=== PATIENT | female | born 1965 | race Caucasian/White ===

== ENCOUNTER 2020-04-27 16:28 | Emergency (ER) | payer BC ==
[2020-04-27] MEDS ORDERED: Sodium Chloride 0.9% 10 ML Syringe FLUSH PRN (16:30)
[2020-04-27] MEDS: Sodium Chloride 0.9% 1,000 ML IV ONE (16:50)
[2020-04-27 17:07] LABS: ANION GAP 15.4 mmol/L (5-15); CHLORIDE,CL 105 mmol/L (98-115); SODIUM,NA 142 mmol/L (136-145)
[2020-04-27 17:10] VITALS: BP 164/94; PULSE 71
[2020-04-27] MEDS: Ondansetron 4 MG/2 ML SDV IVPUSH ONE (17:35)
--- NOTE | 2020-04-27 17:55 | EDM.PDOC ---
ED HPI GENERAL MEDICAL PROBLEM - General Chief Complaint: General Stated Complaint: HEADACHE, CHILLS Time Seen by Provider: 04/27/20 16:30 Source of Information: Reports: Patient History Limitations: Reports: No Limitations - History of Present Illness INITIAL COMMENTS - FREE TEXT/NARRATIVE: Patient is a 54-year-old female who presents to the emergency department this afternoon with a complaint of weakness and dizziness. Patient states that she was doing some light activity and felt weak and became diaphoretic. This occurred about 1 hour prior to presentation. Patient denies any cardiopulmonary history, chest pain, shortness of breath, abdominal pain, bowel changes, fever, covid exposure, suspected dehydration, change in medication, weight gain or weight loss. Onset: Today, Sudden Duration: Hour(s): Severity: Mild Improves with: Reports: None Worsens with: Reports: None Context: Reports: Activity Associated Symptoms: Reports: Diaphoresis, Headaches, Nausea/Vomiting. Denies: Fever/Chills - Related Data Allergies Allergy/AdvReac Type Severity Reaction Status Date / Time erythromycin base Allergy Nausea Verified 04/27/20 17:11 Penicillins Allergy Anaphylactic Verified 04/27/20 17:11 Shock Sulfa (Sulfonamide Allergy Cannot Verified 04/27/20 17:11 Antibiotics) Remember Home Meds: Home Meds Acetaminophen [Tylenol Extra Strength] 1,000 mg PO Q4H PRN 03/01/15 [History] LORazepam 1 mg PO DAILY PRN 10/29/16 [History] Past Medical History - Past Health History Medical/Surgical History: Denies Medical/Surgical History HEENT History: Reports: Impaired Vision Gastrointestinal History: Reports: None 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 Constitutional: Reports: Chills, Weakness, Diaphoresis HEENT: Reports: No Symptoms Respiratory: Reports: No Symptoms Cardiovascular: Reports: No Symptoms Endocrine: Reports: No Symptoms GI/Abdominal: Reports: No Symptoms : Reports: No Symptoms Musculoskeletal: Reports: No Symptoms Skin: Reports: No Symptoms Neurological: Reports: Dizziness Psychiatric: Reports: No Symptoms Hematologic/Lymphatic: Reports: No Symptoms Immunologic: Reports: No Symptoms ED EXAM, GENERAL - Physical Exam Exam: See Below Exam Limited By: No Limitations General Appearance: Alert, WD/WN, No Apparent Distress, Lethargic Eye Exam: Bilateral Eye: Normal Inspection Nose: Normal Inspection, Normal Mucosa, No Blood Throat/Mouth: Normal Inspection, Normal Oropharynx, No Airway Compromise Head: Atraumatic, Normocephalic Neck: Normal Inspection Respiratory/Chest: No Respiratory Distress, Lungs Clear, Normal Breath Sounds, No Accessory Muscle Use, Chest Non-Tender Cardiovascular: Regular Rate, Rhythm, No Murmur GI/Abdominal: Normal Bowel Sounds, Soft, Non-Tender Back Exam: Normal Inspection. No: CVA Tenderness (L), CVA Tenderness (R) Extremities: Normal Inspection, No Pedal Edema Neurological: Alert, Oriented, CN II-XII Intact, Normal Cognition Psychiatric: Normal Affect, Normal Mood Skin Exam: Warm, Intact, Normal Color, No Rash, Diaphoretic Lymphatic: No Adenopathy EKG INTERPRETATION EKG Date: 04/27/20 Time: 18:00 Rhythm: NSR Rate (Beats/Min): 59 Gilchrist: Normal P-Wave: Present QRS: Normal ST-T: Normal QT: Normal Comparison: NA - No Prior EKG Course - Vital Signs Last Recorded V/S: Last Vital Signs Temp 96 F L 04/27/20 17:06 Pulse 71 04/27/20 17:06 Resp 20 04/27/20 17:06 BP 164/94 H 04/27/20 17:06 Pulse Ox 100 04/27/20 17:06 - Orders/Labs/Meds Orders: Active Orders 24 hr Category Date Time Status EKG Documentation Completion [RC] ASDIRECTED Care 04/27/20 17:48 Ordered Peripheral IV Care [RC] . DIRECTED Care 04/27/20 16:30 Ordered Sodium Chloride 0.9% [Saline Flush] Med 04/27/20 16:30 Ordered 10 ml FLUSH Q8HR PRN Peripheral IV Insertion Adult [OM.PC] Routine Oth 04/27/20 16:30 Ordered EKG 12 Lead [EK] Stat Ther 04/27/20 17:47 Ordered Medication Orders Sodium Chloride (Saline Flush) 10 ml FLUSH Q8HR PRN PRN Reason: keep vein open Labs: Laboratory Tests 04/27/20 04/27/20 04/27/20 Range/Units 16:31 16:35 17:45 WBC 9.70 (5.00-10.00) 10^3/uL RBC 5.12 (3.80-5.50) 10^6/uL Hgb 14.6 (12.0-16.0) g/dL Hct 44.5 (37.0-47.0) % MCV 86.9 (82.0-92.0) fL MCH 28.5 (27.0-31.0) pg MCHC 32.8 (32.0-36.0) g/dL RDW 13.4 (11.5-14.5) % Plt Count 380 (150-400) 10^3/uL MPV 10.1 (7.4-10.4) fL Immature Gran % (Auto) 0.2 (0.0-5.0) % Neut % (Auto) 72.1 H (50.0-70.0) % Lymph % (Auto) 16.9 L (20.0-40.0) % [place] % (Auto) 8.1 H (2.0-8.0) % Eos % (Auto) 2.2 (1.0-3.0) % Baso % (Auto) 0.5 (0.0-1.0) % Neut # (Auto) 6.99 (2.50-7.00) 10^3/uL Lymph # (Auto) 1.64 (1.00-4.00) 10^3/uL [place] # (Auto) 0.79 (0.10-0.80) 10^3/uL Eos # (Auto) 0.21 (0.10-0.30) 10^3/uL Baso # (Auto) 0.05 (0.00-0.10) 10^3/uL Immature Gran # (Auto) 0.02 (0.00-0.50) 10^3/uL Sodium 142 (136-145) mmol/L Potassium 4.0 (3.3-5.3) mmol/L Chloride 105 (98-115) mmol/L Carbon Dioxide 25.6 (21.0-32.0) mmol/L Anion Gap 15.4 H (5-15) mmol/L BUN 18 (6-25) mg/dL Creatinine 0.65 (0.51-1.17) mg/dL Est Cr Clr Drug Dosing TNP Estimated GFR (MDRD) > 60 mL/min Glucose 84 (75 - 99) mg/dL Calcium 8.6 L (8.7-10.3) mg/dL Total Bilirubin 0.4 (0.2-1.0) mg/dL AST 31 (15-37) U/L ALT 31 (12-78) U/L Alkaline Phosphatase 89 (46-116) IU/L Total Protein 7.1 (6.4-8.2) g/dL Albumin 4.14 (3.00-4.80) g/dL Specimen Type Urincc Urine Color Light yellow (YELLOW) Urine Appearance Clear (CLEAR) Urine pH 5.5 (5.0-9.0) Ur Specific [place] 1.015 (1.005-1.030) Urine Protein Negative (NEGATIVE) mg/dL Urine Glucose (UA) Negative (NEGATIVE) mg/dL Urine Ketones Trace H (NEGATIVE) mg/dL Urine Occult Blood Negative (NEGATIVE) Urine Nitrite Negative (NEGATIVE) Urine Bilirubin Negative (NEGATIVE) Urine Urobilinogen 0.2 (0.2-1.0) E.U./dL Ur Leukocyte Esterase Negative (NEGATIVE) Meds: Medications Generic Name Dose Route Start Last Admin Trade Name Freq PRN Reason Stop Dose Admin Sodium Chloride 10 ml 04/27/20 16:30 Saline Flush FLUSH Q8HR PRN keep vein open Discontinued Medications Generic Name Dose Route Start Last Admin Trade Name Freq PRN Reason Stop Dose Admin Sodium Chloride 1,000 mls @ 999 mls/hr 04/27/20 16:30 04/27/20 16:50 Normal Saline IV 04/27/20 17:30 999 mls/hr .BOLUS ONE Administration Ondansetron HCl 4 mg 04/27/20 17:26 04/27/20 17:35 Zofran IVPUSH 04/27/20 17:27 4 mg ONETIME ONE Administration - Re-Assessments/Exams Free Text/Narrative Re-Assessment/Exam: 04/27/20 19:05 Patient afebrile, vital signs stable, feels much better after 1 L normal saline. Patient will follow-up with PCP Departure - Departure Time of Disposition: 19:06 Disposition: Home, Self-Care 01 Condition: Good Clinical Impression: Weakness - Discharge Information Instructions: Weakness, [id number] Referrals: Christina Begum MD [Physician] - Forms: ED Department Discharge Additional Instructions: Follow-up with Dr. Gimenez in one to 2 days. Return to emergency department sooner symptoms continue or worsen. Sepsis Event Note (ED) - Evaluation Sepsis Screening Result: No Definite Risk - Focused Exam Vital Signs: Vital Signs Temp Pulse Resp BP Pulse Ox 04/27/20 17:06 96 F L 71 20 164/94 H 100 - My Orders Last 24 Hours: My Active Orders 04/27/20 16:30 Peripheral IV Care [RC] . DIRECTED Sodium Chloride 0.9% [Saline Flush] 10 ml FLUSH Q8HR PRN Peripheral IV Insertion Adult [OM.PC] Routine 04/27/20 17:47 EKG 12 Lead [EK] Stat 04/27/20 17:48 EKG Documentation Completion [RC] ASDIRECTED - Assessment/Plan Last 24 Hours: My Active Orders 04/27/20 16:30 Peripheral IV Care [RC] . DIRECTED Sodium Chloride 0.9% [Saline Flush] 10 ml FLUSH Q8HR PRN Peripheral IV Insertion Adult [OM.PC] Routine 04/27/20 17:47 EKG 12 Lead [EK] Stat 04/27/20 17:48 EKG Documentation Completion [RC] ASDIRECTED Assessment:: Weakness Plan: Follow-up with PCP
== END 2020-04-27 19:15 | disposition home or self-care (01) ==
LOC: KA.ED 16:28
DX: R53.1 Weakness (principal); R42 Dizziness and giddiness; Z88.0 Allergy status to penicillin; Z88.1 Allergy status to other antibiotic agents; Z88.2 Allergy status to sulfonamides
CPT/HCPCS: 80053; 81003; 85025; 93005; 96361; 96374; 99285; J2405; J7030; 99284

== ENCOUNTER 2021-02-10 10:09 | Day surgery (SDC) | payer BC ==
[2021-02-10] MEDS ORDERED: Sodium Chloride 0.9% 10 ML Syringe FLUSH PRN (10:15)
[2021-02-10] MEDS ORDERED: Lactated Ringers 1,000 ML IV SCH (10:15)
--- NOTE | 2021-02-10 11:44 | PCM.PN ---
- General Info Date of Service: 02/10/21 - Review of Systems Systems Review Comment:: 55-year-old female here for screening colonoscopy. She does have a history of colon cancer in a grandparent. The patient is medically stable to proceed today. Her recent history and physical is reviewed and no significant changes are noted. I have discussed the proposed colonoscopy with the patient. Risks such as but not limited to bleeding and colon injury are reviewed. She agrees to proceed. - Patient Data Vitals - Most Recent: Last Vital Signs Temp 97.6 F 02/10/21 10:23 Pulse 60 02/10/21 10:23 Resp 16 02/10/21 10:23 BP 136/85 02/10/21 10:23 Pulse Ox 100 02/10/21 10:23 Weight - Most Recent: 83.915 kg Med Orders - Current: Current Medications Lactated Ringer's (Ringers, Lactated) 1,000 mls @ 50 mls/hr IV ASDIRECTED DEBORAH Last Admin: 02/10/21 10:59 Dose: 50 mls/hr Documented by: Sodium Chloride (Sodium Chloride 0.9% 10 Ml Syringe) 10 ml FLUSH Q8HR PRN PRN Reason: keep vein open Sepsis Event Note - Focused Exam Vital Signs: Vital Signs Temp Pulse Resp BP Pulse Ox 02/10/21 10:23 97.6 F 60 16 136/85 100 - Problem List Review Problem List Initiated/Reviewed/Updated: Yes - My Orders Last 24 Hours: My Active Orders 02/09/21 16:10 Resuscitation Status Routine 02/10/21 Breakfast Nothing Per Oral Diet [DIET] 02/10/21 10:15 Peripheral IV Care [RC] . DIRECTED Lactated Ringers [Ringers, Lactated] 1,000 ml IV ASDIRECTED Sodium Chloride 0.9% [Saline Flush] 10 ml FLUSH Q8HR PRN Peripheral IV Insertion Adult [OM.PC] Routine 02/10/21 10:30 Patient to Empty Bladder [RC] ASDIRECTED 02/10/21 11:15 Verify Patient Consent Obtain [RC] ASDIRECTED - Assessment Assessment:: Colon cancer screening - Plan Plan:: Colonoscopy
[2021-02-10] MEDS ORDERED: Propofol 200 MG/20 ML SDV ONE (11:54)
[2021-02-10] MEDS ORDERED: Midazolam 1 MG/ML 2 ML SDV ONE (11:54)
--- NOTE | 2021-02-10 12:36 | PCM.OPNOTE ---
- General Post-Op/Procedure Note Date of Surgery/Procedure: 02/10/21 Operative Procedure(s): Colonoscopy with Polypectomy Findings: Cluster of 3 polyps in rectum External Hemorrhoids Colon otherwise normal Pre Op Diagnosis: Colon Cancer Screening Post-Op Diagnosis: Colon Poyps. Hemorrhoids Anesthesia Technique: MAC Primary Surgeon: Dylan Oneil Pathology: Rectal Polyps EBL in mLs: 0 Complications: None Condition: Good
[2021-02-10 15:41] VITALS: BP 103/64; PULSE 50
--- NOTE | 2021-02-10 16:56 | OR ---
DATE OF SURGERY: 02/10/2021 SURGEON: Dylan Oneil MD PREOPERATIVE DIAGNOSIS: Colon cancer screening. POSTOPERATIVE DIAGNOSIS: Colon polyps and hemorrhoids. OPERATION PERFORMED: Colonoscopy with polypectomy. INDICATIONS FOR SURGERY: This 55-year-old female is here for screening colonoscopy. She does have a history of colon cancer in a grandparent. It has been many years since her previous colonoscopy. FINDINGS: A cluster of 3 polyps was noted in the rectum approximately 8 cm from the anal verge. These range in size from 3 mm to 8 mm with the largest being pedunculated and the other sessile. Her colon otherwise appears normal. She does have some external hemorrhoids and scarring from previous surgery. DESCRIPTION OF PROCEDURE: The patient was taken to the operating room. She was given intravenous sedation and with her in the left lateral decubitus position, digital rectal exam was performed showing no rectal masses. The Olympus colonoscope was inserted into the rectum. Retroflexed examination of the rectal canal is performed. In the rectum, the above-described 3 polyps were identified. The 2 larger polyps were removed with cautery snare and retrieved. The other very small polyp is destroyed with cautery. The scope was then carefully advanced under direct visualization through the entire length of the colon until the cecum is reached. Cecal acquisition is confirmed by noting the normal internal cecal anatomy including the appendiceal orifice and the ileocecal valve. After examining the cecum, the scope was slowly withdrawn sequentially re-examining the colonic segments until the entire colon and rectum had been fully examined. The scope was removed and the patient was taken from the operating room in satisfactory condition. ESTIMATED BLOOD LOSS: Zero. COMPLICATIONS: None. PROGNOSIS: Good. /[id number]/MODL
== END 2021-02-10 13:35 | disposition home or self-care (01) ==
LOC: KA.SDS 10:09
PROVIDERS: ATTEND Surgery
DX: Z12.11 Encounter for screening for malignant neoplasm of colon (principal); K62.1 Rectal polyp; K64.9 Unspecified hemorrhoids; E53.8 Deficiency of other specified B group vitamins; E55.9 Vitamin D deficiency, unspecified; K21.9 Gastro-esophageal reflux disease without esophagitis; Z80.0 Family history of malignant neoplasm of digestive organs; Z88.1 Allergy status to other antibiotic agents; Z88.8 Allergy status to other drugs, medicaments and biological substances; Z79.899 Other long term (current) drug therapy; Z98.890 Other specified postprocedural states
CPT/HCPCS: 00812; 45385; J2250; J2704; J7120

== ENCOUNTER 2021-03-30 20:53 | Emergency (ER) | payer BC ==
--- NOTE | 2021-03-30 20:58 | EDM.PDOC ---
ED HPI GENERAL MEDICAL PROBLEM - General Chief Complaint: Back Pain or Injury Stated Complaint: LOWER BACK PAIN Time Seen by Provider: 03/30/21 20:57 Source of Information: Reports: Patient - History of Present Illness INITIAL COMMENTS - FREE TEXT/NARRATIVE: Shanita, 55-year-old female, presents per pedis to the emergency department with left SI lower back discomfort. Satarday she was carrying items with her arms full when she caught her foot on uneven concrete falling forward catching herself but striking her upper torso on the dumpster railing. She had some discomfort at the time but has been stable up until this afternoon. She then returned home after work and started experiencing significant discomfort with questionable spasm in the left SI joint.She denies any radiculopathy or radiation into the buttock nor into the left upper thigh nor leg. History of minimal involvement with her back, but never experiencing anything like this. Onset Date: 03/29/21 Duration: Hour(s):, Getting Worse Location: Reports: Back, Pelvis Quality: Reports: Burning, Sharp Severity: Severe Worsens with: Reports: Movement Context: Reports: Activity Lower Back Pain Score (Numeric/FACES): 10 - Related Data Allergies Allergy/AdvReac Type Severity Reaction Status Date / Time erythromycin base Allergy Nausea Verified 03/30/21 21:28 Penicillins Allergy Anaphylactic Verified 03/30/21 21:28 Shock Sulfa (Sulfonamide Allergy Cannot Verified 03/30/21 21:28 Antibiotics) Remember sulfamethoxazole Allergy Cannot Verified 03/30/21 21:28 [From Bactrim] Remember trimethoprim [From Bactrim] Allergy Cannot Verified 03/30/21 21:28 Remember Home Meds: Home Meds Acetaminophen [Tylenol Extra Strength] 1,000 mg PO Q4H PRN 03/01/15 [History] LORazepam 1 mg PO DAILY PRN 10/29/16 [History] Cholecalciferol (Vitamin D3) [Vitamin D] 5,000 unit PO DAILY 02/09/21 [History] Past Medical History - Past Health History Medical/Surgical History: Denies Medical/Surgical History HEENT History: Reports: Impaired Vision Gastrointestinal History: Reports: None 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 History: Reports: None Neurological History: Reports: Migraines Hematologic History: Reports: Anemia Dermatologic History: Reports: None - Past Surgical History GI Surgical History: Reports: Bariatric Procedure Other GI Surgeries/Procedures: Fistula repair x5 Female Surgical History: Reports: Hysterectomy Musculoskeletal Surgical History: Reports: Joint Replacement, Knee Replacement, Other (See Below) Other Musculoskeletal Surgeries/Procedures:: right knee ACL/MCL repair; right knee replacement 07/2020 Dermatological Surgical History: Reports: Plastic Surgical Reconstruction/Repair Social & Family History - Family History Family Medical History: No Pertinent Family History - Caffeine Use Caffeine Use: Reports: Soda ED ROS GENERAL - Review of Systems Review Of Systems: Comprehensive ROS is negative, except as noted in HPI. ED EXAM,LOWER BACK PAIN/INJURY - Physical Exam Exam: See Below Text/Narrative:: Alert oriented in mild painful distress. HEENT is negative discharge or deformity. Neck is soft supple no lymphadenopathy Thorax is clear no wheezes no crackles. Cardiac is regular There is tenderness in the upper aspect of the left SI back region with point tenderness over the SI joint itself. Limited motion of the right lower extremity is any motion of the hip, even the knee induces discomfort of the left SI. Virtually no motion of the left lower extremity as significant worsening of pain. Distal pulses are present CMS is intact. Course - Vital Signs Last Recorded V/S: Last Vital Signs Temp 97.2 F 03/30/21 21:25 Pulse 72 03/30/21 21:25 Resp 20 03/30/21 21:25 BP 145/70 H 03/30/21 21:25 Pulse Ox 97 03/30/21 21:25 - Orders/Labs/Meds Orders: Active Orders 24 hr Category Date Time Status Peripheral IV Care [RC] . DIRECTED Care 03/30/21 21:08 Active Sodium Chloride 0.9% [Saline Flush] Med 03/30/21 21:08 Active 10 ml FLUSH Q8HR PRN Peripheral IV Insertion Adult [OM.PC] Routine Oth 03/30/21 21:08 Ordered Medication Orders Sodium Chloride (Sodium Chloride 0.9% 10 Ml Syringe) 10 ml FLUSH Q8HR PRN PRN Reason: keep vein open Last Admin: 03/30/21 21:07 Dose: 10 ml Documented by: LYN Meds: Medications Generic Name Dose Route Start Last Admin Trade Name Freq PRN Reason Stop Dose Admin Sodium Chloride 10 ml 03/30/21 21:08 03/30/21 21:07 Sodium Chloride 0.9% 10 Ml Syringe FLUSH 10 ml Q8HR PRN Administration keep vein open Discontinued Medications Generic Name Dose Route Start Last Admin Trade Name Geovanni PRN Reason Stop Dose Admin Ketorolac Tromethamine 30 mg 03/30/21 21:07 03/30/21 21:17 Ketorolac 30 Mg/Ml Sdv IM 03/30/21 21:08 30 mg ONETIME ONE Administration Ketorolac Tromethamine 30 mg 03/30/21 21:07 03/30/21 21:14 Ketorolac 30 Mg/Ml Sdv IVPUSH 03/30/21 21:08 30 mg ONETIME ONE Administration Orphenadrine Citrate 60 mg 03/30/21 21:32 03/30/21 21:38 Orphenadrine 60 Mg/2 Ml Inj IM 03/30/21 21:33 60 mg ONETIME ONE Administration - Re-Assessments/Exams Free Text/Narrative Re-Assessment/Exam: 03/30/21 21:33 Mild improvement but still unable to move lower extremities, stating a spasming feeling. We will implement Norflex IM and see if that will help calm down the area. Departure - Departure Time of Disposition: 21:55 Disposition: Home, Self-Care 01 Condition: Good Clinical Impression: SI (sacroiliac) pain - Discharge Information *PRESCRIPTION DRUG MONITORING PROGRAM REVIEWED*: Not Applicable *COPY OF PRESCRIPTION DRUG MONITORING REPORT IN PATIENT TATIANA: Not Applicable Referrals: Christina Begum MD [Primary Care Provider] - Forms: ED Department Discharge Additional Instructions: You need to go home, rest, on a flat uniform surface. The medications you have been given may make you slightly drowsy. You may use Tylenol this evening for discomfort, but no Aleve or ibuprofen until tomorrow morning. Heat and ice sometimes will benefit to reduce pain and inflammation. We will contact Cameron tomorrow and see if he is able to see you in physical therapy for evaluation and treatment. Return to the emergency department tonight if spasming or pain becomes severe, otherwise contact clinic or therapy in the morning. Sepsis Event Note (ED) - Focused Exam Vital Signs: Vital Signs Temp Pulse Resp BP Pulse Ox 03/30/21 21:25 97.2 F 72 20 145/70 H 97 - Problem List & Annotations (1) SI (sacroiliac) pain SNOMED Code(s): 364272508 Code(s): M53.3 - SACROCOCCYGEAL DISORDERS, NOT ELSEWHERE CLASSIFIED Status: Acute Current Visit: Yes - Problem List Review Problem List Initiated/Reviewed/Updated: Yes - My Orders Last 24 Hours: My Active Orders 03/30/21 21:08 Peripheral IV Care [RC] . DIRECTED Sodium Chloride 0.9% [Saline Flush] 10 ml FLUSH Q8HR PRN Peripheral IV Insertion Adult [OM.PC] Routine - Assessment/Plan Last 24 Hours: My Active Orders 03/30/21 21:08 Peripheral IV Care [RC] . DIRECTED Sodium Chloride 0.9% [Saline Flush] 10 ml FLUSH Q8HR PRN Peripheral IV Insertion Adult [OM.PC] Routine Plan: You need to go home, rest, on a flat uniform surface. The medications you have been given may make you slightly drowsy. You may use Tylenol this evening for discomfort, but no Aleve or ibuprofen until tomorrow morning. Heat and ice sometimes will benefit to reduce pain and inflammation. We will contact Cameron tomorrow and see if he is able to see you in physical therapy for evaluation and treatment. Return to the emergency department tonight if spasming or pain becomes severe, otherwise contact clinic or therapy in the morning.
[2021-03-30] MEDS ORDERED: Ketorolac 30 MG/ML SDV IVPUSH ONE (21:07)
[2021-03-30] MEDS ORDERED: Ketorolac 30 MG/ML SDV IM ONE (21:07)
[2021-03-30] MEDS ORDERED: Sodium Chloride 0.9% 10 ML Syringe FLUSH PRN (21:08)
[2021-03-30] MEDS ORDERED: Orphenadrine 60 MG/2 ML Inj IM ONE (21:32)
[2021-03-30 21:35] VITALS: BP 145/70; PULSE 72
== END 2021-03-30 22:06 | disposition home or self-care (01) ==
LOC: KA.ED 20:53
DX: M53.3 Sacrococcygeal disorders, not elsewhere classified (principal); Z88.1 Allergy status to other antibiotic agents; Z88.0 Allergy status to penicillin; Z88.2 Allergy status to sulfonamides
CPT/HCPCS: 96372; 96374; 99283; J1885; J2360

== ENCOUNTER 2022-04-15 11:33 | Emergency (ER) | payer BC ==
[2022-04-15 12:10] LABS: ANION GAP 13.9 mmol/L (5-15)
[2022-04-15] MEDS: LORazepam 2 MG/ML SDV IVPUSH ONE (12:21)
[2022-04-15 12:34] VITALS: PULSE 60
[2022-04-15] MEDS: Ketorolac 30 MG/ML SDV IVPUSH ONE (12:58)
[2022-04-15 13:20] VITALS: BP 130/81
== END 2022-04-15 13:15 | disposition home or self-care (01) ==
LOC: KA.ED 11:33
DX: H53.8 Other visual disturbances (principal); Z88.1 Allergy status to other antibiotic agents; Z88.0 Allergy status to penicillin; Z88.2 Allergy status to sulfonamides; Z79.899 Other long term (current) drug therapy; Z90.710 Acquired absence of both cervix and uterus
CPT/HCPCS: 36415; 70450; 71045; 80053; 84484; 85025; 96374; 96375; 99284; J1885; J2060